=== PATIENT | female | born 1985 | race Caucasian/White ===

== ENCOUNTER 2022-04-17 19:28 | Emergency (ER) | payer OTHER, SELFPAY ==
[2022-04-17 20:09] VITALS: BP 126/85; PULSE 124; RESP 18; TEMP 37.2; O2SAT 99
--- NOTE | 2022-04-17 20:09 | ED.URI ---
HPI - URI/Sore Throat General Chief Complaint: Upper Respiratory Infection Stated Complaint: fever,dizziness Time Seen by Provider: 04/17/22 19:36 Source: patient Mode of arrival: ambulatory Limitations: no limitations History of Present Illness HPI Narrative: Mr. Huerta is a 36-year-old female patient presenting to the clinic today with complaints of fever, chills, body aches, and dizziness x1 day. Reports she was exposed to her sister and her mother who were having similar symptoms over the holiday weekend MD elicited complaint: sore throat and nasal congestion Related Data Home Medications Medication Instructions Recorded Confirmed citalopram 40 mg tablet 40 mg PO DAILY 04/17/22 04/17/22 Allergies Allergy/AdvReac Type Severity Reaction Status Date / Time nitrofurantoin Allergy Unknown Other Verified 04/17/22 19:59 NITROFURANTOIN MACROCRYSTAL Allergy Unknown Other Uncoded 04/17/22 19:59 Review of Systems Review of Systems: Pertinent positives per HPI. Patient denies any rash, headache, visual changes, cough, shortness of breath, chest pain, palpitations, nausea, vomiting, diarrhea, constipation, abdominal pain, or any urinary issues. [facility] Family History Family History Other Family history of Alzheimer's disease Family history of coronary artery disease Family history of elevated blood lipids Family history of malignant neoplasm of male breast Hypertension Social History Social History Smoking status: Never smoker Alcohol intake: current Comments At the time of my signature, I reviewed and agree with the nursing past medical, surgical, social, and family history. There is no relevant family history pertinent to the patient complaint. Exam Narrative: General: Well-developed, obese, in no apparent distress Head: Normocephalic, atraumatic Eyes: Pupils equally round and reactive to light bilaterally, EOM intact, sclera and conjunctive clear, no discharge, lids normal Ears: TMs intact and dull, ear canals clear, no drainage, grossly hearing normal. Nose: Nares patent, clear discharge, no inflammation, no sinus tenderness. Mouth: Oral pharynx without lesions or masses, good dentition, MMM. oropharynx red, postnasal drip Neck: Supple, trachea midline, no enlargement of anterior or posterior cervical nodes, no thyroid masses or goiter palpable. Cardio: Regular rate and rhythm, s1 and s2 normal, no murmur appreciated. Resp: Clear to auscultation bilaterally, no rhonchi, rales, wheezing or rubs Course Course Emergency Course: Portions of this record may have been created with voice recognition software. Level of Care: Express Care Visit Vital Signs Vital signs: Vital Signs Temperature 37.2 C 04/17/22 20:09 Pulse Rate 124 H 04/17/22 20:09 Respiratory Rate 18 04/17/22 20:09 Blood Pressure 126/85 04/17/22 20:09 Pulse Oximetry 99 04/17/22 20:09 Oxygen Delivery Room Air 04/17/22 20:09 Temperature 37.2 C 04/17/22 20:09 Pulse Rate 124 H 04/17/22 20:09 Respiratory Rate 18 04/17/22 20:09 Blood Pressure 126/85 04/17/22 20:09 Pulse Oximetry 99 04/17/22 20:09 Oxygen Delivery Room Air 04/17/22 20:09 Vital signs reviewed MDM - URI/Sore Throat MDM Narrative Medical decision making narrative: at the time of the patient is resting comfortably on the exam table. Influenza testing was positive for influenza A. prescription for Tamiflu was sent to the pharmacy. Supportive measures were discussed with the patient she voiced understanding of discharge instructions and agrees to treatment plan. Differential Diagnosis Differential diagnosis: Likely sinusitis, viral infection, influenza and pharyngitis Lab Data Labs: Influenza A Screen Positive Reference Range: Negative Inf
== END 2022-04-17 20:16 | disposition home or self-care (01) ==
PROVIDERS: Emergency Provider Nurse Practitioner Family
DX: J10.1 Influenza due to other identified influenza virus with other respiratory manifestations (principal)
CPT/HCPCS: 87804; 99213; G0463